=== PATIENT | male | born 1990 | race African-American/Black ===

== ENCOUNTER 2016-06-25 04:56 | Emergency (ER) | payer OTHER ==
[~2016-06-25] VITALS: Ht 180.3 cm; Wt 81.6 kg
[~2016-06-25 04:56] MED LIST: MEDROL DOSEPAK1 PAC PO; MOBIC15 MG PO; PREDNISONE10 MG PO
--- NOTE | 2016-06-25 05:09 | ED GI/GU/ABDOMINAL COMPLAINT ---
History of Present Illness General Chief Complaint: Nausea, Vomiting, Diarrhea Stated Complaint: NAUSEA,VOMITING, ABD PAIN Source: patient, family, old records Exam Limitations: no limitations Vital Signs & Intake/Output Vital Signs & Intake/Output Vital Signs Date Time Temp Pulse Resp B/P Pulse O2 O2 Flow FiO2 Ox Delivery Rate 06/25 0735 69 16 101/69 99 06/25 0638 97.8 89 20 103/79 96 Room Air 06/25 0510 97.2 74 20 105/68 100 Room Air Allergies Coded Allergies: NO KNOWN ALLERGIES (12/20/12) Reconcile Medications Meloxicam (Mobic) 15 MG TAB 1 TAB PO DAILY PRN PAIN Methylprednisolone. (Medrol) 1 PAC PAC 1 PAC PO AD INFLAMMATION Prednisone 10 MG TABLET 0 TAB PO DAILY INFLAMMATION 4 TABS DAY1/DAY2 3 TABS DAY3/DAY4 2 TABS DAY5 Triage Nurses Notes Reviewed? yes HPI: Patient woke up at 3:00 in the morning with nausea vomiting diarrhea. Crampy abdominal pain. The pain is in the periumbilical and epigastric area. There is no radiation. The pain is 10 out of 10. There is no aggravating or mitigating factors. There is no radiation. Patient denies any fevers or chills. There is no dysuria. (DANIEL MONTANA,ELSIE Espinal) Past History Medical History Any Pertinent Medical History? 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 No (ELSIE SANCHEZ MD) Review of Systems Review of Systems Constitutional: Reports: no symptoms. EENTM: Reports: no symptoms. Respiratory: Reports: no symptoms. Cardiovascular: Reports: no symptoms. GI: Reports: see HPI, abdominal pain, diarrhea, nausea, vomiting. Genitourinary: Reports: no symptoms. Musculoskeletal: Reports: no symptoms. Skin: Reports: no symptoms. Neurological/Psychological: Reports: no symptoms. Hematologic/Endocrine: Reports: no symptoms. Immunologic/Allergic: Reports: no symptoms. All Other Systems: Reviewed and Negative (DANIEL MONTANA,ELSIE Espinal) Physical Exam Physical Exam General Appearance: well developed/nourished, alert, awake, anxious, moderate distress Head: atraumatic, normal appearance Eyes: Bilateral: PERRL, EOMI, other (ANICTERIC). Ears, Nose, Throat, Mouth: hearing grossly normal, DRY MUCOUS MEMBRANES Neck: normal inspection, supple, full range of motion Respiratory: normal breath sounds, chest non-tender, no respiratory distress, lungs clear Cardiovascular: regular rate/rhythm, normal peripheral pulses Gastrointestinal: normal bowel sounds, soft, no organomegaly, tenderness ( PARAUMBILICALLY), NO REBOUND OR GUARDING Back: normal inspection Extremities: normal range of motion Neurologic/Psych: no motor/sensory deficits, awake, alert, oriented x 3, normal gait, normal mood/affect Skin: intact, normal color, warm/dry Core Measures ACS in differential dx? No Severe Sepsis Present: No Septic Shock Present: No (DANIEL MONTANA,ELSIE Espinal) Progress Differential Diagnosis: appendicitis, diverticulitis, gastritis, hepatitis, ischemic bowel, inflamm bowel dis, pancreatitis, peptic ulcer, PUD/GERD Plan of Care: Orders Procedure Date/time Status LIPASE 06/25 0507 Complete COMPREHENSIVE METABOLIC PANEL 06/25 0507 Complete CBC WITHOUT DIFFERENTIAL 06/25 050 Complete AMYLASE 06/25 0507 Complete Laboratory Tests 06/25/16 0515: Anion Gap 14, Estimated GFR > 60, BUN/Creatinine Ratio 12.7, Glucose 172 H, Calcium 9.4, Total Bilirubin 0.5, AST 27, ALT 30, Alkaline Phosphatase 96, Total Protein 7.1, Albumin 4.1, Globulin 3.0, Albumin/Globulin Ratio 1.4, Amylase 64, Lipase 227, CBC w Diff MAN DIFF ORDERED, RBC 5.11, MCV 87.7, MCH 28.9, RDW 13.5, MPV 10.1, Gran % 74.4, Lymphocytes % 18.9 L, Monocytes % 4.7, Eosinophils % 1.5 , Basophils % 0.5, Absolute Granulocytes 12.9 H, Segmented Neutrophils 73, Band Neutrophils 1, Absolute Lymphocytes 3.3, Lymphocytes 17 L, Monocytes 7, Absolute Monocytes 0.8 H, Eosinophils 2, Absolute Eosinophils 0.3, Absolute Basophils 0.1, Nucleated RBCs 1 H, Platelet Estimate ADEQUATE, Normocytic RBCs VERIFIED, Normochromic RBCs VERIFIED, PUBS MCHC 32.9 L, Fld Total RBCs Counted 100 Initial ED EKG: none Hand-Off Endorsed To: ALIDA REEVES DO Endorsed Time: 0700 Pending: CT (DANIEL MONTANA,ELSIE Espinal) Departure Departure Disposition: STILL A PATIENT Condition: Stable Clinical Impression Primary Impression: Lower abdominal pain, unspecified Secondary Impressions: Hyperglycemia Referrals: PATIENT HAS NO PRIMARY CARE DR (PCP/Family) Additional Instructions: He relates follow-up with primary care physician about your blood sugar. Sugar was elevated during this visit. Return if symptoms worsen or for any concerns. Departure Forms: Customer Survey General Discharge Information (DANIEL MONTANA,ELSIE Espinal) Departure Comments 06/25/16 7:50 am The patient was signed out to me by Dr. Sanchez. No abdominal pain at this time. CT scan is negative other then kidney stone. Labs showed leukocytosis and hyperglycemia. The patient feels much better. He will be given by mouth Zofran here and a prescription for Zofran' He will follow-up with his doctor in 3 days and return to the emergency department if worse (ALIDA REEVES DO) PATIENT: DMITRY MATHEWS PRESENT AGE: 26 PATIENT ACCOUNT NO: [id number] : 91 LOCATION: [facility] ORDERING PHYSICIAN: ELSIE SANCHEZ MD SERVICE DATE: 06/25/16-599 EXAM TYPE: CAT - CT ABD & PELVIS W IV CONTRAST EXAMINATION: CT ABDOMEN AND PELVIS WITH CONTRAST CLINICAL INFORMATION: Right lower quadrant pain. Rule out appendicitis. COMPARISON: None. TECHNIQUE: Multidetector volumetric imaging was performed of the abdomen and pelvis before and after the IV administration of 93 mL of Optiray 320 intravenous contrast. Sagittal and coronal reformatted images were obtained on the technologist's workstation. DLP: 264 mGy-cm. FINDINGS: LUNG BASES: The visualized lung bases are unremarkable. LIVER, GALLBLADDER, AND BILIARY TREE: The liver is normal in size and shape. There is periportal edema, most likely due to aggressive IV hydration. No focal hepatic lesion or biliary ductal dilatation is present. There is a small amount of pericholecystic fluid. Gallbladder is otherwise unremarkable. PANCREAS: Unremarkable. SPLEEN: Unremarkable. ADRENAL GLANDS: Unremarkable. KIDNEYS AND URETERS: A nonobstructing 3 mm calculus is present in the upper pole the right kidney. No additional renal calculi. Kidneys are normal in size, contour, and attenuation without perinephric stranding. Ureters are normal in appearance. No hydronephrosis or hydroureter. BLADDER: Unremarkable. GASTROINTESTINAL TRACT: Stomach, small bowel, and colon are normal in caliber. There is mild bowel wall thickening at the decompressed transverse colon. This is favored to be related to nondistention. Colitis is less likely. Otherwise, no significant bowel wall thickening or surrounding inflammatory changes are identified. Appendix is normal. There is straightening of free fluid or free air. ABDOMINAL WALL: No significant hernia is appreciated. LYMPH NODES: Normal. VASCULAR: Unremarkable. PELVIC VISCERA: Unremarkable. OSSEOUS STRUCTURES: Unremarkable. IMPRESSION: 1. Normal appendix. 2. Periportal edema and trace pericholecystic fluid, most likely due to aggressive IV hydration. 3. A nonobstructing 3 mm right renal calculus. No hydronephrosis. 4. Mild wall thickening in the transverse colon. This is favored to be due to nondistention as opposed to true inflammation. Colitis would be less likely. DICTATED BY: CELESTE HOLDER MD DATE/TIME DICTATED:06/25/16653 ENDOCRINOLOGY TEACHER:YUE DATE/TIME TRANSCRIBED:06/25/16653 CONFIDENTIAL, DO NOT COPY WITHOUT APPROPRIATE AUTHORIZATION. <Electronically signed in Other Vendor System> SIGNED BY: CELESTE HOLDER MD 06/25/16 0708 (ALIDA REEVES DO
[2016-06-25 05:29] LABS: ABSOLUTE BASOPHIL COUNT 0.1 /CUMM (0.0-0.2); ABSOLUTE EOSINOPHIL COUNT 0.3 /CUMM (0.0-0.7); ABSOLUTE GRANULOCYTE CT 12.9 /CUMM (1.4-6.5); ABSOLUTE LYMPH COUNT 3.3 /CUMM (1.2-3.4); ABSOLUTE MONOCYTE COUNT 0.8 /CUMM (0.10-0.60); BASOPHIL % 0.5 % (0.0-2.0); EOSINOPHIL % 1.5 % (0-5); GRANULOCYTE % 74.4 % (42.2-75.2); HEMATOCRIT 44.9 % (42-52); MEAN CORPUSCULAR HGB 28.9 PG (27.0-31.0); MEAN CORPUSCULAR HGB CONC 32.9 G/DL (33.0-37.0); MEAN CORPUSCULAR VOLUME 87.7 FL (80.0-94.0); MEAN PLATELET VOLUME 10.1 FL (7.4-10.4); PLATELET COUNT 152 /CUMM (130-400); RBC DISTRIBUTION WIDTH 13.5 % (11.5-14.5); RED BLOOD CELL CT 5.11 /CUMM (4.70-6.10); WHITE BLOOD CELL COUNT 17.3 /CUMM (4.8-10.8)
--- NOTE | 2016-06-25 07:08 | CT SCAN REPORT ---
EXAMINATION: CT ABDOMEN AND PELVIS WITH CONTRAST CLINICAL INFORMATION: Right lower quadrant pain. Rule out appendicitis. COMPARISON: None. TECHNIQUE: Multidetector volumetric imaging was performed of the abdomen and pelvis before and after the IV administration of 93 mL of Optiray 320 intravenous contrast. Sagittal and coronal reformatted images were obtained on the technologist's workstation. DLP: 264 mGy-cm. FINDINGS: LUNG BASES: The visualized lung bases are unremarkable. LIVER, GALLBLADDER, AND BILIARY TREE: The liver is normal in size and shape. There is periportal edema, most likely due to aggressive IV hydration. No focal hepatic lesion or biliary ductal dilatation is present. There is a small amount of pericholecystic fluid. Gallbladder is otherwise unremarkable. PANCREAS: Unremarkable. SPLEEN: Unremarkable. ADRENAL GLANDS: Unremarkable. KIDNEYS AND URETERS: A nonobstructing 3 mm calculus is present in the upper pole the right kidney. No additional renal calculi. Kidneys are normal in size, contour, and attenuation without perinephric stranding. Ureters are normal in appearance. No hydronephrosis or hydroureter. BLADDER: Unremarkable. GASTROINTESTINAL TRACT: Stomach, small bowel, and colon are normal in caliber. There is mild bowel wall thickening at the decompressed transverse colon. This is favored to be related to nondistention. Colitis is less likely. Otherwise, no significant bowel wall thickening or surrounding inflammatory changes are identified. Appendix is normal. There is straightening of free fluid or free air. ABDOMINAL WALL: No significant hernia is appreciated. LYMPH NODES: Normal. VASCULAR: Unremarkable. PELVIC VISCERA: Unremarkable. OSSEOUS STRUCTURES: Unremarkable. IMPRESSION: 1. Normal appendix. 2. Periportal edema and trace pericholecystic fluid, most likely due to aggressive IV hydration. 3. A nonobstructing 3 mm right renal calculus. No hydronephrosis. 4. Mild wall thickening in the transverse colon. This is favored to be due to nondistention as opposed to true inflammation. Colitis would be less likely.
[2016-06-25 07:35] VITALS: BP 101/69
[2016-06-25] MEDS ORDERED: ZOFRAN4 M2 PO (08:00)
== END 2016-06-25 08:10 ==
LOC: ERH 04:56
PROVIDERS: Emergency Medicine
DX: R10.33 Periumbilical pain (principal); R73.9 Hyperglycemia, unspecified
CPT/HCPCS: 74177; 96361; 96374; 96375; 96376; J1885; J2405; J3101

== ENCOUNTER 2017-10-14 08:43 | Emergency (ER) | payer OTHER ==
[~2017-10-14] VITALS: Ht 182.9 cm; Wt 68.0 kg
[~2017-10-14 08:43] MED LIST changes: +BENTYL10 M1 PO; +IBUPROFEN800 M1 PO; +MEDROL4 M2 PO; +PRILOSEC OTC20 M1 PO; +ZOFRAN ODT4 M1 SL; +ZOFRAN4 M2; +ZOFRAN4 M2 PO
[2017-10-14 10:02] LABS: ABSOLUTE BASOPHIL COUNT 0 /CUMM (0.0-0.2); ABSOLUTE EOSINOPHIL COUNT 0 /CUMM (0.0-0.7); ABSOLUTE GRANULOCYTE CT 9.8 /CUMM (1.4-6.5); ABSOLUTE LYMPH COUNT 1.3 /CUMM (1.2-3.4); ABSOLUTE MONOCYTE COUNT 0.7 /CUMM (0.10-0.60); BASOPHIL % 0.1 % (0.0-2.0); EOSINOPHIL % 0 % (0-5); GRANULOCYTE % 83.3 % (42.2-75.2); HEMATOCRIT 46.9 % (42-52); MEAN CORPUSCULAR HGB CONC 33.2 G/DL (33.0-37.0); MEAN CORPUSCULAR VOLUME 87.4 FL (80.0-94.0); MEAN PLATELET VOLUME 9.7 FL (7.4-10.4); PLATELET COUNT 156 /CUMM (130-400); RBC DISTRIBUTION WIDTH 13.6 % (11.5-14.5); RED BLOOD CELL CT 5.37 /CUMM (4.70-6.10); WHITE BLOOD CELL COUNT 11.7 /CUMM (4.8-10.8)
--- NOTE | 2017-10-14 10:31 | ED GI/GU/ABDOMINAL COMPLAINT ---
History of Present Illness General Chief Complaint: Nausea, Vomiting, Diarrhea Stated Complaint: VOMITING Source: patient, old records Exam Limitations: no limitations Vital Signs & Intake/Output Vital Signs & Intake/Output Vital Signs Date Time Temp Pulse Resp B/P B/P Pulse O2 O2 Flow FiO2 Mean Ox Delivery Rate 10/14 1237 98.6 88 17 118/64 97 Room Air 10/14 1036 98.8 92 17 124/70 99 Room Air 10/14 1015 98 Room Air 10/14 0848 98.6 104 18 119/72 98 Room Air Allergies Coded Allergies: NO KNOWN ALLERGIES (12/20/12) Reconcile Medications Hyoscyamine Sulfate (Levsin-Sl) 0.125 MG TAB.SUBL 1-2 TAB SL Q4P PRN abdominal cramps Metoclopramide HCl (Reglan) 10 MG TABLET 1 TAB PO 4 TIMES/DAY PRN nausea / vomiting 30 minutes before meals and bedtime Omeprazole Magnesium (Prilosec Otc) 20 MG TABLET.DR 1 TAB PO DAILY stomach burning Triage Note: 27 YO MALE TO TRIAGE C/O VOMTIING SINCE YESTERDY, STATES HE SEES A GI DR AND WAS DX WITH GASTRITIS AND PUT ON PRILOSEC. DENIES ABD PAIN. Triage Nurses Notes Reviewed? yes Onset: 2 years Duration: intermittent Timing: recent history Quality/Severity: cramping, moderate, vomiting Location: generalized abdomen Radiation: no radiation Activities at Onset: eating Prior Abdominal Problems: similar symptoms Past Sexual History: Unobtainable at this time Modifying Factors: Worsens With: eating. Associated Symptoms: abdominal pain, diarrhea, nausea/vomiting HPI: 2 years prior to admission patient complains of episodes after eating fatty foods of crampy abdominal discomfort followed by explosive loose watery stool then nausea vomiting for a long period of time. His last episode began 1 day ago after eating at [employer] for 4 consecutive days the last day having a chicken coello sandwich. He has been evaluated by GI with EGD suggestive of gastroparesis and 2 CT scans of the abdomen pelvis over the last year without significant pathology. He denies fever chills chest pain cough shortness of breath headache dysuria rash bleeding. Past History Travel History Traveled to [place] past 21 day No Medical History Any Pertinent Medical History? 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 No Review of Systems Review of Systems Constitutional: Reports: no symptoms. EENTM: Reports: no symptoms. Respiratory: Reports: no symptoms. Cardiovascular: Reports: no symptoms. GI: Reports: see HPI, abdominal pain, diarrhea, nausea, vomiting. Genitourinary: Reports: no symptoms. Musculoskeletal: Reports: no symptoms. Skin: Reports: no symptoms. Neurological/Psychological: Reports: no symptoms. Hematologic/Endocrine: Reports: no symptoms. Immunologic/Allergic: Reports: no symptoms. All Other Systems: Reviewed and Negative Physical Exam Physical Exam General Appearance: well developed/nourished, alert, awake, anxious, mild distress, thin Head: atraumatic, normal appearance Eyes: Bilateral: normal appearance, PERRL, EOMI, normal inspection. Ears, Nose, Throat, Mouth: hearing grossly normal, moist mucous membrane Neck: normal inspection, supple, full range of motion, normal alignment Respiratory: chest non-tender, no respiratory distress, quiet respiration, lungs clear Cardiovascular: regular rate/rhythm, normal peripheral pulses, norml femoral pulses equa Peripheral Pulses: 4+ carotid (R), 4+ carotid (L) Gastrointestinal: normal bowel sounds, soft, non-tender, no organomegaly Male Genitals: normal genitalia Back: normal inspection, normal range of motion, no vertebral tenderness Extremities: normal range of motion Neurologic/Psych: no motor/sensory deficits, awake, alert, oriented x 3, normal gait, normal mood/affect, occupational rehabilitation aide II-XII nml as tested Skin: intact, normal color, warm/dry Core Measures ACS in differential dx? No Sepsis Present: No Sepsis Focused Exam Completed? No Progress Differential Diagnosis: gastritis, peptic ulcer, PUD/GERD Plan of Care: Orders Procedure Date/time Status LIPASE 10/14 933 Complete COMPREHENSIVE METABOLIC PANEL 10/14 933 Complete CBC WITHOUT DIFFERENTIAL 10/14 933 Complete Laboratory Tests 10/14/17 0953: Anion Gap 16, Estimated GFR > 60, BUN/Creatinine Ratio 18.8, Glucose 108 H, Calcium 10.0, Total Bilirubin 0.8, AST 23, ALT 33, Alkaline Phosphatase 81, Total Protein 8.2, Albumin 4.9, Globulin 3.3, Albumin/Globulin Ratio 1.5, Lipase 165, CBC w Diff NO MAN DIFF REQ, RBC 5.37, MCV 87.4, MCH 29.0, MCHC 33.2, RDW 13.6, MPV 9.7, Gran % 83.3 H, Lymphocytes % 10.7 L, Monocytes % 5.9, Eosinophils % 0, Basophils % 0.1, Absolute Granulocytes 9.8 H, Absolute Lymphocytes 1.3, Absolute Monocytes 0.7 H, Absolute Eosinophils 0, Absolute Basophils 0 Initial ED EKG: none Departure Departure Time of Disposition: 1312 Disposition: HOME OR SELF CARE Condition: Stable Clinical Impression Primary Impression: Gastroparesis Secondary Impressions: Irritable bowel syndrome Referrals: Patient Has No Primary Care Dr (PCP/Family) Additional Instructions: Get your omeprazole refill. Departure Forms: Customer Survey General Discharge Information Prescriptions: Current Visit Scripts Metoclopramide HCl (Reglan) 1 TAB PO 4 TIMES/DAY PRN nausea / vomiting #30 TAB 30 minutes before meals and bedtime Hyoscyamine Sulfate (Levsin-Sl) 1-2 TAB SL Q4P PRN abdominal cramps #30 TAB
[2017-10-14 12:37] VITALS: BP 118/64
[2017-10-14] MEDS ORDERED: REGLAN10 M1 PO (13:14)
[2017-10-14] MEDS ORDERED: LEVSIN-SL0.125 MG SL (13:14)
== END 2017-10-14 13:46 ==
LOC: ERH 08:43
PROVIDERS: Emergency Medicine
DX: K31.84 Gastroparesis (principal); N32.89 Other specified disorders of bladder
CPT/HCPCS: 96361; 96374; 96375; J2765

== ENCOUNTER 2017-10-25 16:45 | Emergency (ER) | payer OTHER ==
[~2017-10-25] VITALS: Ht 182.9 cm; Wt 68.0 kg
[~2017-10-25 16:45] MED LIST changes: +LEVSIN-SL0.125 MG SL; +REGLAN10 M1 PO
[2017-10-25] MEDS ORDERED: POLYTRIM EYE DR10 ML OPH (18:58)
--- NOTE | 2017-10-25 18:58 | ED EYE COMPLAINT ---
History of Present Illness General Chief Complaint: Eye Problems Stated Complaint: PT LT EYE IS HAVING LOTS OF PAIN Source: patient Exam Limitations: no limitations Vital Signs & Intake/Output Vital Signs & Intake/Output Vital Signs Date Time Temp Pulse Resp B/P B/P Pulse O2 O2 Flow FiO2 Mean Ox Delivery Rate 10/25 1904 98.6 68 110/66 10/25 1855 Room Air 10/25 1704 95.8 78 18 108/68 95 Room Air Room Air ED Intake and Output 10/26 0000 10/25 1200 Intake Total Output Total Balance Patient 150 lb Weight Weight Reported by Patient Measurement Method Allergies Coded Allergies: NO KNOWN ALLERGIES (12/20/12) Reconcile Medications Hyoscyamine Sulfate (Levsin-Sl) 0.125 MG TAB.SUBL 1-2 TAB SL Q4P PRN abdominal cramps Metoclopramide HCl (Reglan) 10 MG TABLET 1 TAB PO 4 TIMES/DAY PRN nausea / vomiting 30 minutes before meals and bedtime Omeprazole Magnesium (Prilosec Otc) 20 MG TABLET.DR 1 TAB PO DAILY stomach burning Polytrim (Polytrim Eye Drops) 10,000 UNIT-1 MG/ML DROPS 1 GTT OPH Q6 CORNEAL ABRASION Triage Note: PT TO ED WITH C/O LEFT EYE PAIN, TEARING. PT JUST HAD LEFT ROTATOR CUFF SURGERY THIS MORNING AND "HAS BEEN HURTING SINCE THEN". Triage Nurses Notes Reviewed? yes Onset: Abrupt Duration: day(s): (1), constant, continues in ED Timing: single episode today Injury Environment: or Severity: moderate, severe Severity Numbers: 6 No Modifying Factors: none Left Eye Associated Symptoms: burning, itching, pain, sensitivity to light HPI: 27-year-old male with no past medical history presents for evaluation of left eye pain redness and irritation. Patient states that he had shoulder surgery today and the pain was present after he woke up from the surgery. He did state that he had his eyes take close during the surgery. He is unsure of any other direct trauma. He does not wear contacts. No discharge changes in vision pain with extraocular motion. No headaches fever sore throat or any other concerns no sick contacts. Past History Travel History Traveled to [place] past 21 day No Medical History Any Pertinent Medical History? 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 No Review of Systems Review of Systems Constitutional: Reports: no symptoms. Eyes: Reports: see HPI, foreign body sensation, inflammation, pain, photophobia. Ear: Reports: no symptoms. Nose: Reports: no symptoms. Mouth: Reports: no symptoms. Throat: Reports: no symptoms. Respiratory: Reports: no symptoms. Cardiovascular: Reports: no symptoms. GI: Reports: no symptoms. Genitourinary: Reports: no symptoms. Musculoskeletal: Reports: no symptoms. Skin: Reports: no symptoms. Neurological/Psychological: Reports: no symptoms. Hematologic/Endocrine: Reports: no symptoms. Immunologic/Allergic: Reports: no symptoms. All Other Systems: Reviewed and Negative Physical Exam General Appearance: well developed/nourished, no apparent distress, alert, awake General Inspection: periorbital swelling (mild) Eyelid: normal inspection, everted for exam Conjunctiva/Sclera: injected Cornea: normal inspection, examined w/fluorescein EOM: intact Pupil: normal accommodation, normal pupil, PERRL Anterior Chamber: normal inspection General Inspection: normal inspection Eyelid: normal inspection, everted for exam Conjunctiva/Sclera: normal inspection Cornea: normal inspection EOM: intact Pupil: normal accommodation, normal pupil, PERRL Anterior Chamber: normal inspection Posterior Segments: normal funduscopic Physical Exam Head: atraumatic, normal appearance Ears: Bilateral: canal normal, Tympanic normal. Nose: normal inspection Mouth/Throat: normal mouth inspection, pharynx normal Neck: normal inspection, supple, full range of motion Cardiovascular/Respiratory: no respiratory distress Neurologic/Psych: no motor/sensory deficits, awake, alert, oriented x 3, normal gait Skin: intact, normal color, warm/dry Progress Differential Diagnosis: corneal abrasion, corneal foreign body, conjunctivitis Plan of Care: Patient seen and evaluated. He is reporting pain and swelling to left eye since waking up from surgery this morning. For seen stain is negative for increased uptake however when patient was medicated with tetracaine his symptoms completely resolved. He denies changes in vision fever there is no periorbital erythema. X-ray of the motion is intact. Patient will be treated with Polytrim drops. Advised Tylenol or Profen for pain patient has Percocet for severe pain only. Follow-up with an eye doctor. Discussed return precautions in detail. Patient agrees the plan. Departure Departure Disposition: HOME OR SELF CARE Condition: Stable Clinical Impression Primary Impression: Corneal abrasion Qualifiers: Encounter type: initial encounter Laterality: left Qualified Code: S05.02XA - Injury of conjunctiva and corneal abrasion without foreign body, left eye, initial encounter Referrals: Patient Has No Primary Care Dr (PCP/Family) Fernie MONTANA,Mikey Munoz Additional Instructions: Rest, avoid direct sunlight. Wear sunglasses outside. Try not to rub her eyes. Use Tylenol and ibuprofen for pain Percocet for severe pain only. Apply Polytrim drops to your eyes for the full course. Make a follow-up woman with Dr. Turner eye doctor as soon as possible. Monitor symptoms return with any concerns. Departure Forms: Customer Survey General Discharge Information Prescriptions: Current Visit Scripts Polytrim (Polytrim Eye Drops) 1 GTT OPH Q6 #10 ML
[2017-10-25 19:04] VITALS: BP 110/66
== END 2017-10-25 19:04 ==
LOC: ERH 16:45
DX: S05.02XA Injury of conjunctiva and corneal abrasion without foreign body, left eye, initial encounter (principal); X58.XXXA Exposure to other specified factors, initial encounter; Y92.89 Other specified places as the place of occurrence of the external cause; Y93.89 Activity, other specified